=== PATIENT | male | born 1965 | race Caucasian/White ===

== ENCOUNTER 2021-05-04 08:31 | Outpatient (RCR) | payer OTHER | END 2021-06-26 | disposition home or self-care (01) | LOC: WSOH | DX: S60.052A Contusion of left little finger without damage to nail, initial encounter (principal); J45.909 Unspecified asthma, uncomplicated; Z87.891 Personal history of nicotine dependence; Z90.89 Acquired absence of other organs; Y99.0 Civilian activity done for income or pay ==